=== PATIENT | male | born 1965 | race Caucasian/White ===

== ENCOUNTER → 2017-03-13 | Outpatient (CLI) | payer OTHER ==
[2017-03-13 10:33] LABS: HEMOGLOBIN 14.6 g/dL (14.1-18.0); LYMPH # 2.8 K/mm3 (0.7-4.5); LYMPH % 37.4 % (10-50)
[2017-03-13 11:39] LABS: BUN 18 mg/dL (7-18)
[2017-03-13 11:44] LABS: GFR (ESTIMATED) 71 ML/MIN (>60)
== END ==
LOC: LAB 10:20
PROVIDERS: Surgery
DX: K40.00 Bilateral inguinal hernia, with obstruction, without gangrene, not specified as recurrent (principal); Z01.812 Encounter for preprocedural laboratory examination